=== PATIENT | male | born 1960 | race Caucasian/White ===

== ENCOUNTER 2016-03-22 10:05 | Inpatient (IN) ==
--- NOTE | 2016-03-21 21:34 | Discharge Summary ---
<Libia Lambert - Last Filed: 03/22/16 13:54> Date of Encounter: 03/22/16 - Discharge Diagnosis (1) Unstable reverse total shoulder arthroplasty Priority: Primary Status: Acute Qualifiers: Encounter type: initial encounter Qualified Code(s): T84.028A - Dislocation of other internal joint prosthesis, initial encounter (2) End stage renal disease Priority: Secondary Status: Chronic (3) Diabetes Priority: Secondary Status: Chronic Qualifiers: Diabetes mellitus type: type 2 Diabetes mellitus complication status: with unspecified complications Diabetes mellitus snf insulin use: unspecified ferry terminal agent insulin use status Qualified Code(s): E11.8 - Type 2 diabetes mellitus with unspecified complications - Discharge Medications Home Medications: Amlodipine [Norvasc] 10 mg PO DAILY 04/30/15 [History] Esomeprazole Magnesium [Nexium] 20 mg PO HS 04/30/15 [History] Insulin ASPART [Novolog] 0 unit SQ TID PRN 04/30/15 [History] Insulin Glargine,Hum.rec.anlog [Lantus Solostar] 35 unit SQ HS 04/30/15 [History ] Linagliptin [Tradjenta] 5 mg PO DAILY 04/30/15 [History] Metoprolol XL (24 HR) Succ [Toprol Xl] 25 mg PO HS 04/30/15 [History] Oxybutynin Chloride [Ditropan Xl] 15 mg PO DAILY 04/30/15 [History] Aspirin Enteric Coated [Aspirin EC] 325 mg PO DAILY #21 tablet. 03/21/16 [Rx] OxyCODONE Immed Rel [Roxicodone 5 MG] 5 - 10 mg PO Q6HR PRN #40 tablet 03/21/16 [Rx] B Complex W-C No.20/Folic Acid [Nephrocaps Softgel] 1 mg PO HS 03/22/16 [History ] Brimonidine 0.2% [Alphagan] 1 drop RIGHT EYE QAM 03/22/16 [History] CloNIDine HCl [Clonidine HCl] 0.3 mg PO BID 03/22/16 [History] Allergies/Adverse Reactions: Allergies losartan [Losartan] Allergy (Mild, Verified 03/22/16 11:57) Rash ketamine Adverse Reaction (Mild, Verified 03/22/16 11:57) paranoid pregabalin [From Lyrica] Adverse Reaction (Mild, Verified 03/22/16 11:57) shakes gabapentin [From Neurontin] Adverse Reaction (Verified 03/22/16 11:57) shakes NSAIDS (Non-Steroidal Anti-Inflamma Adverse Reaction (Verified 03/22/16 11:57) renal failure butterscotch Allergy (Severe, Uncoded 04/30/15 13:47) Anaphylaxis Primary care physician: PCP NO - Patient Status Disposition: Home, Self-Care Condition: Good - Discharge Instructions Follow Up With: NO,PCP [Primary Care Provider] - - Hospital Course Hospital course: Mr. Calhoun is a 55 year old male - Time Spent with Patient Total time spent providing and/or coordinating discharge services: <Murphy Valencia - Last Filed: 03/23/16 06:47> Date of Encounter: 03/23/16 Time of Encounter: 06:45 - Discharge Diagnosis (1) Hypertension Priority: Secondary Status: Chronic Qualifiers: Hypertension type: unspecified secondary hypertension Qualified Code(s): I15.9 - Secondary hypertension, unspecified; I15 - Secondary hypertension (2) Obstructive sleep apnea Priority: Secondary Status: Chronic (3) Coronary artery disease Priority: Secondary Status: Chronic Qualifiers: Coronary Disease-Associated Artery/Lesion type: unspecified vessel or lesion type [place] vs. transplanted heart: [place] heart Associated angina: angina presence unspecified Qualified Code(s): I25.10 - Atherosclerotic heart disease of [place] coronary artery without angina pectoris (4) Unstable reverse total shoulder arthroplasty Priority: Primary Status: Acute Qualifiers: Encounter type: subsequent encounter Qualified Code(s): T84.028D - Dislocation of other internal joint prosthesis, subsequent encounter (5) Diabetes Priority: Secondary Status: Chronic Qualifiers: Diabetes mellitus type: type 2 Diabetes mellitus complication status: with unspecified complications Diabetes mellitus snf insulin use: unspecified snf insulin use status Qualified Code(s): E11.8 - Type 2 diabetes mellitus with unspecified complications (6) End stage renal disease Priority: Secondary Status: Chronic Primary care physician: PCP NO - Patient Status Functional capacity at discharge: independent ambulation Overall status at discharge: patient is progressing back to baseline - Hospital Course Hospital course: Mr. Calhoun is a 55 year old male The patient had an uneventful postoperative course. They received antibiotics and physical therapy and were discharged in stable condition. There will follow -up in the office in 2 weeks. Patient received dialysis postoperatively - Time Spent with Patient Total time spent providing and/or coordinating discharge services:
[2016-03-22] MEDS ORDERED: CeFAZolin Pre 2,000 MG/100 ML 2,000 MG/100 ML BAG IVPB ONE (10:23)
[2016-03-22] MEDS ORDERED: 0.9 % Sodium Chloride 1,000 ML IVC SCH (10:30)
--- NOTE | 2016-03-22 11:02 | History & Physical Report ---
Date of Encounter: 03/22/16 Time of Encounter: 11:02 24 Hour HP Update - Instructions Instructions: If the History and Physical is less than 30 days old and was completed prior to A.M. admission and or procedure and has NOT been updated on calendar day of procedure please complete this update prior to performing procedure. - Update Patient reports changes in Medical Condition: No Changes in assessment/condition: No Changes in Medication: No Preop tests/diagnostics Reviewed: Yes Surgery Remains Indicated: Yes Consent for Planned Operative Procedure(s) Verified: Yes - Pre-Operative Checklist Preoperative Checklist Indicated: No Prophylactic Antibiotic Ordered: Yes Is VTE Prophylaxis Indicated?: Yes
--- NOTE | 2016-03-22 11:34 | Anesthesia Evaluation PreOp ---
Date of Encounter: 03/22/16 Time of Encounter: 11:31 - Past History Planned Operation: r tsr, reverse Cardiac History: HTN, Other (lhc 10/01: mod/non obst ASCAD. STress 06/03: no angina, nl lv, neg stress ekg, neg dse. h/o HIT) Pulmonary History: STEPHANIE Dx PATIENT SUPPORT SPECIALIST History: Other (glaucoma) Other Medical History: Renal (M/W/F, dialysis, will check stat labs prior to OR) , Diabetes Type II, GERD Anesthesia History: No Prior Anesthetic Complications, Past Anesthesia (bialt eye, bilat knee arth, r tsr, l1 fx,appy, t&a) Alcohol Use: occasionally Drug use: none Medications and Allergies Amlodipine [Norvasc] 10 mg PO DAILY 04/30/15 [History] B Complex W-C No.20/Folic Acid [Nephrocaps Softgel] 1 mg PO DAILY 04/30/15 [ History] CloNIDine HCl 0.2 mg PO DAILY 04/30/15 [History] Esomeprazole Magnesium [Nexium] 20 mg PO HS 04/30/15 [History] Hydralazine HCl 100 mg PO BID 04/30/15 [History] Insulin ASPART [Novolog] 0 unit SQ TID PRN 04/30/15 [History] Insulin Glargine,Hum.rec.anlog [Lantus Solostar] 35 unit SQ HS 04/30/15 [History ] Linagliptin [Tradjenta] 5 mg PO DAILY 04/30/15 [History] Metoprolol XL (24 HR) Succ [Toprol Xl] 25 mg PO HS 04/30/15 [History] OxyCODONE Immed Rel [Roxicodone 5 MG] 5 - 10 mg PO Q6HR PRN #40 tablet 04/30/15 [Rx] Oxybutynin Chloride [Ditropan Xl] 15 mg PO DAILY 04/30/15 [History] Aspirin Enteric Coated [Aspirin EC] 325 mg PO DAILY #21 tablet. 03/21/16 [Rx] OxyCODONE Immed Rel [Roxicodone 5 MG] 5 - 10 mg PO Q6HR PRN #40 tablet 03/21/16 [Rx] Allergies losartan [Losartan] Allergy (Mild, Verified 04/30/15 13:47) Rash ketamine Adverse Reaction (Mild, Verified 04/30/15 13:47) paranoid pregabalin [From Lyrica] Adverse Reaction (Mild, Verified 04/30/15 13:47) shakes gabapentin [From Neurontin] Adverse Reaction (Verified 04/30/15 13:47) shakes NSAIDS (Non-Steroidal Anti-Inflamma Adverse Reaction (Verified 04/30/15 13:47) renal failure butterscotch Allergy (Severe, Uncoded 04/30/15 13:47) Anaphylaxis - Meds/Allergy Pre-op Review Medications Reviewed: Yes Allergies Reviewed: Yes Beta Blockers on Current Med List: Yes If Beta Blockers taken, Date/Time (Last Dose taken): metoprolol at 0430 Anesthesia Results - Labs Laboratory Tests 03/09/16 03/09/16 03/09/16 10:20 10:20 10:20 Hgb 11.3 L Hct 33.2 L Plt Count 163 PT 11.3 INR 1.0 APTT 32.4 Sodium 137 Potassium 3.8 Creatinine 7.08 H Hemoglobin A1c 03/09/16 10:20 Hgb Hct Plt Count PT INR APTT Sodium Potassium Creatinine Hemoglobin A1c 5.2 STAT LABS PENDING - Imaging EKG: report reviewed (sr, lvh) Anesthesia Exam O2 Sat Height 1.78 m Height 1.78 m Height 1.78 m Weight 105.233 kg Weight 105.233 kg Weight 105.233 kg O2 Sat by Pulse Oximetry 99 Vital Signs Temp Pulse Resp BP Pulse Ox 98.4 F 67 18 155/77 99 03/22/16 10:48 03/22/16 10:48 03/22/16 10:48 03/22/16 10:48 03/22/16 10:48 Blood glucose: 100 Height: 1.78 Weight: 105 NPO (# of Hours): >8 - HEENT Pupil (Motor): Pupils equal, EOMI Mallampati: IV (large bilat palatale masses) Teeth: Poor dentition Oral Opening: Greater than 3 - PATIENT SUPPORT SPECIALIST LOC: Oriented PATIENT SUPPORT SPECIALIST Motor: Normal RUE, Normal LUE, Normal RLE, Normal LLE, Normal Face PATIENT SUPPORT SPECIALIST Sensory: Normal: RUE, LUE, RLE, LLE, Face - Cardiac Rhythm: Regular Murmur: None - Pulmonary Breath Sounds: bilateral Clear Respiratory Effort: Symmetrical Anesthesia Assess/Plan ASA Score: 4 (esrd/dialysis. Pt has difficult AW (will take FOI vs awake look prior to indn). check stat labs as pt has not had dialysis >48hrs) Modified Bella Scale for Level of Consciousness: Cooperative, oriented, and tranquil Anesthetic Plan: General, Regional Monitoring Plan: Standard Monitors Recovery Plan: PACU
[2016-03-22] MEDS ORDERED: *HR* FentaNYL (PF) 100 MCG/2 ML VIAL ONE (12:29)
[2016-03-22] MEDS ORDERED: *HR* Midazolam HCl 2 MG/2 ML VIAL ONE (12:30)
[2016-03-22] MEDS ORDERED: *HR* Propofol 200 MG/20 ML VIAL IVP ONE (12:30)
[2016-03-22] MEDS ORDERED: Dexamethasone 4 MG/ML VIAL ONE (12:31)
[2016-03-22] MEDS ORDERED: Lidocaine -MPF 2% 2 ML VIAL ONE (12:31)
[2016-03-22] MEDS ORDERED: 0.9 % Sodium Chloride 250 ML IV PRN (13:13)
--- NOTE | 2016-03-22 13:13 | Event Note ---
Date of Encounter: 03/22/16 Time of Encounter: 13:06 [facility]: Phu Calhoun is a 55 y/o gentleman with a pmh of ESRD on Home HD. I received a consult from Ortho to help arrange for HD, as the pt had not dialyzed yet today. His BMP is pending, but to help expedite this process, I was asked to go ahead and arrange for a quick dialysis treatment. I ordered a 2hr treatment which would mimic a typical Home Hemo patient's orders. I empircally arranged a more gentle K bath while awaiting the BMP results. Thank you for consulting the [facility] group.
[2016-03-22 13:16] LABS: Basophils # 0.1 K/mcL (0.0-0.2); Basophils % 1.1 %; Eosinophils # 0.5 K/mcL (0.0-0.6); Eosinophils % 3.6 %; Hematocrit 28.7 % (37.5-50.1); Lymphocytes # 1.2 K/mcL (0.6-4.6); Lymphocytes % 9.3 %; Mean Corpuscular HGB Conc 34.8 g/dL (31.6-35.5); Mean Corpuscular Hemoglobin 28.6 pg (28.0-33.3); Mean Platelet Volume 9.7 fL (9.4-12.4); Monocytes # 0.9 K/mcL (0.0-1.3); Monocytes % 6.9 %; Neutrophils # 9.9 K/mcL (1.6-8.9); Platelet Count 162 K/mcL (140-400); Red Cell Distribution Width 17.1 % (11.5-14.5); Segmented Neutrophils % 78.1 %
[2016-03-22 13:30] LABS: Calcium 8.5 mg/dL (8.6-10.8); Potassium 3.9 mEq/L (3.5-4.5)
[2016-03-22] MEDS ORDERED: Bupivacaine/Clonidine Syringe 1 EACH SYRINGE ONE (13:30)
[2016-03-22] MEDS ORDERED: Dexmedetomidine HCl 200 MCG/50 ML MLS IVC ONE (13:46)
--- NOTE | 2016-03-22 15:02 | Anesthesia Procedures ---
Date of Encounter: 03/22/16 Time of Encounter: 13:51 Procedures: Anesthesia - Nerve Block Procedure Date: 03/22/16 Time: 13:51 Allergies/Adv Reactions: Losartan, ketamine, pregabalin, gabapentin, butterscotch, NSAIDS Pre-op Diagnosis: Right shoulder Surgical Procedure: Right total shoulder reverse ball and socket Checklist: Correct Patient Identifier, Correct procedure, History checked Correct side: Right Blood Thinner: No Monitor Applied: EKG, BP, Pulse Oximetry Supplemental Oxygen via Nasal Cannula (L/min): 2 Sedation: Versed (mg): 1 Sedation: Fentanyl (mcg): 100 Indication: Post Op Analgesia Pre-op Neuro Deficits: No Block Type: Supraclavicular, Other (scp) Catheter placed: No Sterile Technique: Yes Ultrasound used: Yes Anatomy identified: Yes Visual spread of Local: Yes Neuro Stimulation: No Blood on Needle Aspiration: No Smooth Injection of Local: Yes Pain with Injection of Local: No Prep: Chlorhexadine Needle: 22 x 50 mm Stimuplex Local: 0.25% Bupivicaine w/Clonidine 20 mcg/cc Volume (cc): 40 Number of Attempts: 1 Complications: None/effective block Vitals: Vital Signs Temperature 98.4 F 03/22/16 10:48 Pulse Rate 67 03/22/16 10:48 Respiratory Rate 18 03/22/16 10:48 Blood Pressure 155/77 03/22/16 10:48 O2 Sat by Pulse Oximetry 99 03/22/16 10:48 Temperature 98.4 F 03/22/16 10:48 Pulse Rate 69 03/22/16 13:51 Respiratory Rate 18 03/22/16 10:48 Blood Pressure 177/90 03/22/16 13:51 O2 Sat by Pulse Oximetry 96 03/22/16 13:51 Comments: block ordered per dr. larios for postoperative pain relief. VSS throughout.
[2016-03-22] MEDS ORDERED: *HR* Promethazine 25 MG/ML VIAL IVP PRN (15:03)
[2016-03-22] MEDS ORDERED: *HR* HYDROmorphone (PF) 1 MG/ML SYRINGE IVP PRN (15:03)
[2016-03-22] MEDS ORDERED: Ondansetron 4 MG/2 ML VIAL ONE (15:11)
[2016-03-22] MEDS ORDERED: EPHEDrine 50 MG/ML VIAL ONE (15:14)
[2016-03-22] MEDS ORDERED: Ringers Solution, Lactated 1,000 ML IVC SCH (15:15)
--- NOTE | 2016-03-22 16:04 | Orthopedic Operative Note ---
Date of procedure: 03/22/16 Pre-op diagnosis: Dislocated right total shoulder replacement reverse Post-op diagnosis: same Procedure: Procedure: Revision Total Shoulder replacement reverse right Estimated blood loss: 300 cc Hardware: Equinox superior augment glenoid plate 6 4.5 screws 6 locking heads 46 glenoid sphere 46 constrained liner plus 2.5, +0 humeral adapter extra-large proximal body +0 8 x 1 20 stem distal cement restrictor Procedural Notes: Ladonna was dissociated humeral stem was loose shoulder was dislocated Operative procedure: The patient was brought to the operating room and placed on the operating room table. The patient was placed in the modified beachchair position. All pressure points were padded appropriately. And the head was stabilized in the neutral position. The operative extremity was prepped and draped in the sterile surgical fashion. The patient received IV antibiotics prior to skin incision. A standard deltopectoral approach was made to the operative shoulder. Incision was made to the skin and subcutaneous tissue through the old incision,hemo stasis was obtained with Bovie cautery. Using careful blunt dissection the deltopectoral interval was developed and the clavipectoral fascia was incised fluid was sent for Gram stain and culture. It was noted that the Ladonna was dissociated from the humeral component. An extensive debridement was performed, the humeral component was delivered into the incision. The humeral component was removed by hand without any effort. Anterior and posterior Bankart retractors were used to expose the glenoid, the glenoid component was removed without incident. First the glenosphere was disengaged, and the screws removed from the baseplate, and finally the baseplate was removed without significant bone loss. The glenoid guide was seated the centering hole was made, the glenoid was positioned more inferiorly based on the patient's x-rays. the glenoid was reamed with the appropriate reamer. The glenoid baseplate was seated and secured and locked in place with the 6 4.5 locking screws. 6 locking bolts were placed over the screws. The baseplate was irrigated and dried the 46 mm glenosphere was seated and secured the central screw. Attention was then turned to the humeral side. The humerus was reamed to 8 x 120. Trial reduction found the shoulder to be relocatable. The stem was cemented in place. Trial with the extra large proximal body +0 adapter found the shoulder be relocatable and stable with the 2.5 Ladonna. Trial components were removed, real implants were seated. Trial reduction found the shoulder to be stable with the appropriate +0 humeral extra-large proximal body and the 2.5 constrained Ladonna constrained. The trial implants were removed the real implants were seated and secured in the shoulder was reduced. The patient had excellent motion and excellent stability no shuck. The deep tissue sent for 2 minutes with a Betadine saline solution, it was was irrigated with pulse irrigation deltopectoral interval was closed with #2 PDS suture over Gelfoam soaked in vancomycin. Superficially the subcutaneous tissue was closed with 0 PDS suture, the skin was closed with Dermabond and skin monique. The patient placed sterile dressing, postoperative brace extubated and transferred to the recovery room in stable condition. Anesthesia: SHANIQUA Surgeon: Murphy Valencia Special Education Kindergarten Teacher: Libia Lambert Condition: stable Disposition: PACU
--- NOTE | 2016-03-22 17:16 | Anesthesia Evaluation Post Op ---
Date of Encounter: 03/22/16 Time of Encounter: 17:16 - Vital Signs Vital Signs: vss - Lungs Lungs: Clear Ascult./Percussion - Airway Airway: Non-obstructed - Cardiovascular Baseline Rhythm - Mental Status Mental Status: Asleep with brisk response to light stimulation - Pain Pain Scale used: Edilia (Faces) (tolerable) - Nausea Vomiting Nausea Vomiting: Not Present - Discharge PostOp Status: Transfer Patient to floor (to be monitored, transfering to Dialysis, then floor.)
[2016-03-22 18:03] LABS: Hematocrit 26.1 % (37.5-50.1)
[2016-03-22] MEDS ORDERED: MOM Conc 10 ML UD.LIQ PO PRN (20:30)
[2016-03-22] MEDS ORDERED: Vancomycin 1,000 MG VIAL IVPB ONE (20:30)
[2016-03-22] MEDS ORDERED: Acetaminophen 325 MG TABLET PO PRN (20:30)
[2016-03-22] MEDS ORDERED: *HR* OxyCODONE Immed Rel 5 MG TABLET PO PRN ×2 (20:30)
[2016-03-22] MEDS ORDERED: Naloxone 0.4 MG/ML INJ IVP PRN (20:30)
[2016-03-22] MEDS ORDERED: Sennosides 8.6 MG TABLET PO PRN (20:30)
[2016-03-22] MEDS ORDERED: Ondansetron 4 MG/2 ML VIAL IVP PRN (20:30)
[2016-03-22] MEDS ORDERED: Temazepam 15 MG CAPSULE PO PRN (20:30)
[2016-03-22] MEDS ORDERED: Vancomycin 1,500 MG in D5% in Water 250 ML IVPB ONE (21:00)
[2016-03-22] MEDS ORDERED: Metoprolol XL (24 HR) Succ 25 MG TAB.ER.24H PO SCH (21:00)
[2016-03-22] MEDS ORDERED: Renal Vitamin 1 MG CAPSULE PO SCH (21:00)
[2016-03-22] MEDS ORDERED: Insulin DETEMIR 100 UNIT/ML X5UNITS SQ SCH (21:00)
[2016-03-22] MEDS: cloNIDine HCl 0.1 MG TABLET PO SCH (21:32)
[2016-03-23] MEDS: *HR* HYDROmorphone (PF) 1 MG/ML SYRINGE IVP PRN ×2 (01:33→05:51)
[2016-03-23 06:16] LABS: Hematocrit 29.3 % (37.5-50.1); Hemoglobin 9.9 g/dL (12.9-16.9)
[2016-03-23] MEDS ORDERED: Dextrose Gel 15 GM PO PRN ×2 (06:47)
[2016-03-23] MEDS ORDERED: *HR* Dextrose 50 % in Water (Syg) 50 ML SYRINGE IVP PRN (06:47)
[2016-03-23] MEDS ORDERED: D5% in Water 1,000 ML IV PRN (06:47)
--- NOTE | 2016-03-23 06:48 | Orthopedics Progress Note ---
Date of Encounter: 03/23/16 Time of Encounter: 06:48 - Assessment and Plan (1) Hypertension Current Visit: Yes Status: Chronic Qualifiers: Hypertension type: unspecified secondary hypertension Qualified Code(s): I15.9 - Secondary hypertension, unspecified; I15 - Secondary hypertension (2) Obstructive sleep apnea Current Visit: Yes Status: Chronic (3) Coronary artery disease Current Visit: Yes Status: Chronic Qualifiers: Coronary Disease-Associated Artery/Lesion type: unspecified vessel or lesion type [place] vs. transplanted heart: [place] heart Associated angina: angina presence unspecified Qualified Code(s): I25.10 - Atherosclerotic heart disease of [place] coronary artery without angina pectoris (4) Unstable reverse total shoulder arthroplasty Current Visit: No Status: Acute Qualifiers: Encounter type: subsequent encounter Qualified Code(s): T84.028D - Dislocation of other internal joint prosthesis, subsequent encounter (5) Diabetes Current Visit: No Status: Chronic Qualifiers: Diabetes mellitus type: type 2 Diabetes mellitus complication status: with unspecified complications Diabetes mellitus terminal operations manager insulin use: unspecified terminal operations manager insulin use status Qualified Code(s): E11.8 - Type 2 diabetes mellitus with unspecified complications (6) End stage renal disease Current Visit: No Status: Chronic Subjective Interval history: Patient was seen this morning doing well without complaints. Afebrile vital signs stable. Operative extremity: Neurovascularly intact Dressing clean dry and intact Calves nontender Assessment and plan: Continue with postoperative care Hemoglobin 9.9 discharged today Objective Vital signs: Vital Signs Temp Pulse Resp BP Pulse Ox 03/23/16 04:00 98.0 F 77 18 159/80 98 03/23/16 00:00 98.0 F 76 17 177/82 98 03/22/16 21:11 97.9 F 73 16 189/94 99 03/22/16 19:40 97.2 F L 18 139/68 03/22/16 19:25 118/63 03/22/16 19:10 135/63 03/22/16 18:55 122/61 03/22/16 18:40 135/63 03/22/16 18:25 157/73 03/22/16 18:10 174/75 03/22/16 17:55 170/79 03/22/16 17:40 97.2 F L 18 199/94 03/22/16 17:19 97.2 F L 67 18 176/90 98 03/22/16 17:09 68 16 178/97 97 03/22/16 16:59 97.2 F L 67 16 176/98 96 03/22/16 16:49 70 16 177/91 95 03/22/16 16:39 68 16 167/85 100 03/22/16 16:29 97.3 F L 65 16 149/79 99 03/22/16 13:51 69 177/90 96 03/22/16 10:48 98.4 F 67 18 155/77 99 Intake and Output 03/22/16 03/22/16 03/23/16 15:59 23:59 07:59 Intake Total 100 / 100 600 / 600 Output Total 2550 / 2550 140 / 140 Balance 100 / 100 -1950 / -1950 -140 / -140 Intake: IV Fluids 100 / 100 Ancef Premix 2,000 MG/100 100 / 100 ML 2,000 mg In 100 ml @ 200 mls/hr IVPB PREOP ONE Rx#:[id number] Intake, Rinseback and 600 / 600 Flushes Output: Urine 150 / 150 140 / 140 Total Dialysis Output 2100 / 2100 Estimated Blood Loss 300 / 300 Other: Weight 105.233 kg Blood Glucose* 100 91 Hemodialysis Net Fluid 1500 Removed (mL) - Labs CBC & BMP: 03/23/16 05:28 03/22/16 12:56 Labs: Abnormal lab results WBC 12.7 K/mcL (4.3-11.1) H 03/22/16 12:56 RBC 3.50 M/mcL (4.19-5.50) L 03/22/16 12:56 Hgb 9.9 g/dL (12.9-16.9) L 03/23/16 05:28 Hct 29.3 % (37.5-50.1) L 03/23/16 05:28 MCV 82.0 fL (83.0-100.0) L 03/22/16 12:56 RDW 17.1 % (11.5-14.5) H 03/22/16 12:56 Neutrophils # 9.9 K/mcL (1.6-8.9) H 03/22/16 12:56 BUN 83 mg/dL (8-26) H 03/22/16 12:56 Creatinine 10.81 mg/dL (0.72-1.25) H 03/22/16 12:56 Est GFR ( Amer) 6 (> 60) L 03/22/16 12:56 Est GFR (Non-Af Amer) 5 (> 60) L 03/22/16 12:56 POC Glucose 91 (58-89) H 03/22/16 16:32 Calculated Osmolality 310 (280-300) H 03/22/16 12:56 Calcium 8.5 mg/dL (8.6-10.8) L 03/22/16 12:56 - VTE Documentation of Mechanical Device: Venous foot pump, device Consult Discharge Plan - Plan Referrals: NO,PCP [Primary Care Provider] -
[2016-03-23 07:01] VITALS: BP 183/87
[2016-03-23] MEDS ORDERED: Insulin LISPRO 300 UNITS/3 ML VIAL SQ SCH (07:30)
[2016-03-23] MEDS: cloNIDine HCl 0.1 MG TABLET PO SCH (07:59)
[2016-03-23] MEDS ORDERED: amLODIPine 5 MG TABLET PO SCH (09:00)
--- NOTE | 2016-03-23 11:25 | Event Note ---
<Ness Gerard - Last Filed: 03/23/16 11:25> Date of Encounter: 03/23/16 Time of Encounter: 11:24 Our group was consulted on this patient late yesterday (please see Dr Valadez' s Event Note). When I went to see patient this morning, he had already been discharged. <Linsey Cordova - Last Filed: 04/08/16 15:27> The patient received dialysis late in the evening after surgery per Dr Valadez but was discharged early in the morning before we took over service.
== END 2016-03-23 10:31 | disposition home or self-care (01) | DRG 483 ==
LOC: SAMDAY 10:05 → 3NENU 20:30
PROVIDERS: ADMIT Orthopaedic Surgery; ATTEND Orthopaedic Surgery